=== PATIENT | female | born 1995 | race Caucasian/White ===

== ENCOUNTER 2016-07-04 11:23 | Emergency (ER) | payer OTHER | END 2016-07-04 13:49 | disposition home or self-care (01) | LOC: FER 11:23 | DX: T74.11XA Adult physical abuse, confirmed, initial encounter (principal); S00.83XA Contusion of other part of head, initial encounter; S20.212A Contusion of left front wall of thorax, initial encounter; M41.9 Scoliosis, unspecified; F17.210 Nicotine dependence, cigarettes, uncomplicated; Y04.2XXA Assault by strike against or bumped into by another person, initial encounter; Y92.009 Unspecified place in unspecified non-institutional (private) residence as the place of occurrence of the external cause | CPT/HCPCS: 70100; 71020; 71100; 99284 ==

== ENCOUNTER 2021-12-21 02:22 | Emergency (ER) | payer OTHER ==
[~2021-12-21 02:22] MED LIST: AMOXICILLIN500 MG PO; AUGMENTIN 875-1 EACH PO; IBUPROFEN800 MG PO; KEFLEX500 MG PO; MOTRIN600 MG PO
[2021-12-21] MEDS ORDERED: MEDROL 4MG DOSEP4 MG PO (04:04)
== END 2021-12-21 04:15 | disposition home or self-care (01) ==
LOC: FER 02:22
DX: M25.572 Pain in left ankle and joints of left foot (principal); F17.210 Nicotine dependence, cigarettes, uncomplicated
CPT/HCPCS: 73610; J1885